=== PATIENT | male | born 1975 | race Hispanic/Latino ===

== ENCOUNTER 2023-02-15 14:36 | Emergency (ER) | payer MEDICAID ==
[~2023-02-15] VITALS: Ht 170.2 cm; Wt 87.7 kg
[2023-02-15] MEDS ORDERED: IBUPROFEN200 M1 PO (14:54)
[2023-02-15 15:09] LABS: BASOPHILS 1.2 % (0-2); EOSINOPHILS 0.3 % (0-6); HEMATOCRIT 47.1 % (35.0-50.0); HEMOGLOBIN 15.9 g/dL (12.0-18.0); LYMPHOCYTES 19.8 % (24-44); MCH 30.5 (27-36); MCHC 33.9 g/dl (30-36); MCV 90.1 fl (81-99); MONOCYTES 6.7 % (0-12); PLATELET COUNT 270 K/uL (140-440); RBC 5.22 M/ul (4.3-5.7); RDW 13.5 (10.5-15.0)
[2023-02-15 15:23] LABS: ALBUMIN 4.1 g/dL (3.4-5.0); ALBUMIN/GLOBULIN RATIO 1.08 (1.1-2.4); ANION GAP 12.9 (7-21); BILIRUBIN, TOTAL 0.8 ng/dL (0.2-1.0); BUN/CREATININE RATIO 14.15 (6.0-28.6); CALCIUM 9.4 mg/dL (8.5-10.1); CREATININE, SERUM 1.13 mg/dL (0.70-1.30); POTASSIUM 3.9 mmol/L (3.5-5.1); PROTEIN, TOTAL 7.9 g/dL (6.4-8.2)
[2023-02-15 15:45] LABS: INFLUENZA B NAA NEGATIVE (NEGATIVE); RESPIRATORY SYNCYTIAL VIR NAA NEGATIVE (NEGATIVE)
[2023-02-15] MEDS ORDERED: ONDANSETRON HCL4 MG PO (16:37)
[2023-02-15] MEDS ORDERED: LOMOTIL TABLET1 EACH PO (16:37)
[2023-02-15] MEDS ORDERED: CYCLOBENZAPRINE10 MG PO (16:37)
[2023-02-15 17:14] VITALS: BP 99/57
== END 2023-02-15 17:15 | disposition home or self-care (01) ==
LOC: ED 14:36
PROVIDERS: Family Medicine
DX: B34.9 Viral infection, unspecified (principal); E83.42 Hypomagnesemia; Z20.822 Contact with and (suspected) exposure to COVID-19
CPT/HCPCS: 36415; 80053; 83735; 85025; 87502; 96361; 96365; 96375; 99284-25; A9270; C9803; J2405; J3475; J7030; U0002